=== PATIENT | female | born 1985 | race Caucasian/White ===

== ENCOUNTER 2016-12-30 11:51 | Emergency (ER) | payer BC ==
[~2016-12-30] VITALS: Wt 72.1 kg
[~2016-12-30 11:51] MED LIST: ACET1TAB40 PO; BIRTH CONTROL; CLIN-73 PO; IBUP800T25 PO; NAPR-260 PO
[2016-12-30] MEDS ORDERED: ONDANSETRON (ODT) 4 MG TAB ODT STA (12:35)
[2016-12-30] MEDS ORDERED: ONDANSETRON 4 MG INJ IV STA (12:40)
[2016-12-30 12:51] LABS: ADD SCAN DIFF NO
[2016-12-30 12:53] LABS: BASOPHILS % 0.4 % (0.0-2.0); EOSINOPHILS # 0.1 10^3/ul (0.0-0.5); EOSINOPHILS % 1.1 % (0.0-7.0); HEMATOCRIT 38.7 % (37.0-47.0); HEMOGLOBIN 12.9 g/dl (12.0-16.0); LYMPHOCYTES # 2.3 10^3/ul (0.8-2.9); LYMPHOCYTES % 24.7 % (15.0-51.0); MEAN CORPUSCULAR HEMOGLOBIN 28.9 pg (29.0-33.0); MEAN CORPUSCULAR HGB CONC 33.3 g/dl (32.0-37.0); MEAN CORPUSCULAR VOLUME 86.6 fl (82.0-101.0); MEAN PLATELET VOLUME 10.7 fl (7.4-10.4); MONOCYTE # 0.9 10^3/ul (0.3-0.9); MONOCYTES % 9.7 % (0.0-11.0); NEUTROPHIL # 5.9 10^3/ul (1.6-7.5); NEUTROPHILS % 63.5 % (39.0-77.0); PLATELET COUNT 279 10^3/UL (140-415); RED BLOOD COUNT 4.47 10^6/ul (4.20-5.40); RED CELL DISTRIBUTION WIDTH 13.5 % (11.5-14.5); WHITE BLOOD COUNT 9.3 10^3/ul (4.8-10.8)
[2016-12-30] MEDS ORDERED: morphine 10 MG INJ IM ONE (13:00)
[2016-12-30] MEDS ORDERED: morphine 10 MG INJ IV ONE (13:00)
--- NOTE | 2016-12-30 13:27 | RADRPT ---
PROCEDURE: XR right ankle. CLINICAL INDICATION: Ankle pain TECHNIQUE: Three views are available for review. COMPARISON: None available FINDINGS: There is diffuse soft tissue swelling at the ankle. There is normal mineralization, architecture and alignment. No fracture or osseous lesion is identif ied. The joints are unremarkable. IMPRESSION: Diffuse soft tissue swelling. No fracture or osseous lesion identified RPTAT: DB .Raul Hennessy MD, MD Date Time Electronically viewed and signed by .Raul Hennessy MD, MD on 12/30/2016 13:27 .B/
--- NOTE | 2016-12-30 13:28 | RADRPT ---
PROCEDURE: XR right tibia/fibula. CLINICAL INDICATION: Leg pain TECHNIQUE: AP and lateral views of the upper tibia / fibula available for review. COMPARISON: None available FINDINGS: The osseous structures are normal in mineralization, architecture and alignment. No fractures are i dentified. No osseous lesions are identified. The joints are unremarkable. The soft tissues are u nremarkable. IMPRESSION: Unremarkable examination RPTAT: HGDB .Raul Hennessy MD, MD Date Time Electronically viewed and signed by .Raul Hennessy MD, MD on 12/30/2016 13:27 .B/
[2016-12-30 13:35] LABS: POTASSIUM 4.7 mmol/L (3.5-5.1)
[2016-12-30 13:37] LABS: BILIRUBIN,INDIRECT 0.5 mg/dl (0-1.1); BILIRUBIN,TOTAL 0.5 mg/dl (0.2-1.3); CREATININE 0.69 mg/dl (0.44-1.00)
[2016-12-30 13:38] LABS: ALBUMIN/GLOBULIN RATIO 1.25; CALCIUM 9.2 mg/dl (8.4-10.2); TOTAL PROTEIN 7.2 g/dl (6.1-8.1)
[2016-12-30] MEDS ORDERED: HYDROmorphONE 1 MG/ML SYG IV STA (13:45)
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
[2016-12-30] MEDS ORDERED: IBUP-1542 PO (16:16)
[2016-12-30] MEDS ORDERED: OXYC-279 PO (16:16)
--- NOTE | 2016-12-30 17:10 | RADRPT ---
PROCEDURE: XR Foot. CLINICAL INDICATION: Pain. TECHNIQUE: Three views of the right foot. COMPARISON: None available. FINDINGS: No fracture or dislocation is identified. The joint spaces are preserved. There is soft tissue swe lling along the forefoot. IMPRESSION: 1. No fracture or dislocation of the right foot. RPTAT: HTAR .Dev Lara MD, MD Date Time Electronically viewed and signed by .Dev Lara MD, on 12/30/2016 17:10 .R/
--- NOTE | 2016-12-30 17:19 | EN ---
Date/Time of Note Date/Time of Note DATE: 12/30/16 TIME: 17:18 ER Progress Note Patient requested a foot x-ray, foot x-ray was done was evidence of fracture or dislocation. Patient was given Percocet and ibuprofen for her pain. Patient is to follow-up with her primary care doctor within 1-2 days and see an orthopedic doctor. I shared my medical decision making with patient she understands and agrees with plan. LAMINE COOK Dec 30, 2016 17:19
[2016-12-30 17:29] VITALS: BP 118/59; PULSE 76; RESP 18; TEMP 98.1
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
== END 2016-12-30 17:38 | disposition home or self-care (01) ==
LOC: FTE 11:51
DX: S87.81XA Crushing injury of right lower leg, initial encounter (principal); S80.11XA Contusion of right lower leg, initial encounter; V89.2XXA Person injured in unspecified motor-vehicle accident, traffic, initial encounter
CPT/HCPCS: 73590; 73610; 73630; 80053; 82550; 82553; 83605; 84484; 85025; 85651; 86140; 93926; 93971; 96374; 96375; 99285; J1170; J2270; J2405

== ENCOUNTER 2017-06-26 05:59 | Emergency (ER) | payer BC ==
[~2017-06-26] VITALS: Ht 157.5 cm; Wt 78.0 kg
[~2017-06-26 05:59] MED LIST changes: +IBUP-1542 PO; +OXYC-279 PO
[2017-06-26 06:02] VITALS: Ht 157.5 cm; Wt 78.0 kg
[2017-06-26] MEDS ORDERED: SOD CHLORIDE 0.9% 1,000 ML IV STA (06:27)
[2017-06-26] MEDS ORDERED: ONDANSETRON 4 MG INJ IV STA ×2 (06:27→07:52)
[2017-06-26] MEDS ORDERED: LORAZEPAM 2 MG INJ IV ONE (06:30)
[2017-06-26] MEDS ORDERED: ASPIRIN 325 MG TAB PO ONE (06:30)
--- NOTE | 2017-06-26 07:17 | RADRPT ---
PROCEDURE: XR Chest. CLINICAL INDICATION: Chest pain TECHNIQUE: A single AP view of the chest was obtained. COMPARISON: Chest x-ray dated 01/02/2014 FINDINGS: No focal airspace opacification, pleural effusion or pneumothorax is seen. The cardiomediastinal si lhouette is within normal limits for size. The osseous structures are unremarkable. IMPRESSION: Unremarkable chest x-ray. RPTAT: HH .Ember Dodd MD, MD Date Time Electronically viewed and signed by .Ember Dodd MD, on 06/26/2017 07:17 .G/
[2017-06-26 07:27] LABS: BASOPHIL # 0.1 10^3/ul (0.0-0.1); BASOPHILS % 0.3 % (0.0-2.0); EOSINOPHILS # 0.1 10^3/ul (0.0-0.5); EOSINOPHILS % 0.6 % (0.0-7.0); HEMATOCRIT 42.3 % (37.0-47.0); HEMOGLOBIN 14.1 g/dl (12.0-16.0); LYMPHOCYTES # 2.5 10^3/ul (0.8-2.9); LYMPHOCYTES % 16.2 % (15.0-51.0); MEAN CORPUSCULAR HEMOGLOBIN 27.9 pg (29.0-33.0); MEAN CORPUSCULAR HGB CONC 33.3 g/dl (32.0-37.0); MEAN CORPUSCULAR VOLUME 83.8 fl (82.0-101.0); MEAN PLATELET VOLUME 11.5 fl (7.4-10.4); MONOCYTE # 0.8 10^3/ul (0.3-0.9); MONOCYTES % 5.4 % (0.0-11.0); NEUTROPHILS % 76.9 % (39.0-77.0); PLATELET COUNT 264 10^3/UL (140-415); RED BLOOD COUNT 5.05 10^6/ul (4.20-5.40); RED CELL DISTRIBUTION WIDTH 13.6 % (11.5-14.5); WHITE BLOOD COUNT 15.7 10^3/ul (4.8-10.8)
[2017-06-26 07:46] LABS: ALANINE AMINOTRANSFERASE 55 IU/L (13-69); ALBUMIN 4.4 g/dl (3.3-4.9); ALBUMIN/GLOBULIN RATIO 1.18; ALKALINE PHOSPHATASE 93 IU/L (42-121); ANION GAP 17 (8-16); ASPARTATE AMINO TRANSFERASE 78 IU/L (15-46); BILIRUBIN,INDIRECT 0.2 mg/dl (0-1.1); BILIRUBIN,TOTAL 0.2 mg/dl (0.2-1.3); BLOOD UREA NITROGEN 14 mg/dl (7-20); CALCIUM 9.5 mg/dl (8.4-10.2); CARBON DIOXIDE 24 mmol/L (21-31); CHLORIDE 104 mmol/L (97-110); CREATININE 0.72 mg/dl (0.44-1.00); GLUCOSE 108 mg/dl (70-220); POTASSIUM 4.1 mmol/L (3.5-5.1); SODIUM 141 mmol/L (135-144); TOTAL PROTEIN 8.1 g/dl (6.1-8.1)
[2017-06-26] MEDS ORDERED: FAMOTIDINE 20 MG INJ IV STA (07:52)
[2017-06-26] MEDS ORDERED: FAMO-96 PO (07:54)
[2017-06-26] MEDS ORDERED: OMEP20CA16 PO (07:54)
[2017-06-26] MEDS ORDERED: ACET325T33 PO (07:55)
[2017-06-26] MEDS ORDERED: LIDOCAINE/MYLANTA 40 ML BTL PO STA (07:58)
[2017-06-26 08:10] LABS: TROPONIN-I < 0.012 ng/ml (0.00-0.12)
--- NOTE | 2017-06-26 08:23 | ERD ---
ER Documentation Chief Complaint Date/Time DATE: 06/26/17 TIME: 08:22 Chief Complaint PT reports SOB x 1 hour sub sternal CP HPI This is a 32-year-old female presents to the emergency department complaining of midsternal chest pain that is nonradiating, rated 10 out of 10 with associated shortness of breath for the past hour. Patient admits to having nausea. Denies any vomiting, diaphoresis, drug abuse, diarrhea,, fevers. Patient has not taken any medications for this. ROS All systems reviewed and are negative except as per history of present illness. Medications Home Meds Active Scripts Acetaminophen* (Tylenol*) 325 Mg Tablet, 2 TAB PO Q4 Y for PAIN AND OR ELEVATED TEMP, #30 TAB Prov:JACQUI OSEGUERA PA-C 06/26/17 Omeprazole* (Omeprazole*) 20 Mg Capsule.dr, 20 MG PO QAM, #15 Prov:JACQUI OSEGUERA PA-C 06/26/17 Famotidine* (Pepcid*) 20 Mg Tablet, 20 MG PO QHS for 5 Days, TAB Prov:JACQUI OSEGUERA PA-C 06/26/17 Ibuprofen* (Motrin*) 600 Mg Tab, 600 MG PO Q6, #30 TAB Prov:LAMINE COOK 12/30/16 Oxycodone HCl/Acetaminophen (Percocet 5-325 mg Tablet) 1 Each Tablet, 1 EACH PO Q6, #20 TAB Prov:LAMINE COOK 12/30/16 Naproxen* (Naprosyn*) 500 Mg Tablet, 500 MG PO BID Y for PAIN AND/OR INFLAMMATION, #30 TAB Prov:TANI DHILLON PA-C 06/30/15 Acetaminophen-Codeine* (Acetaminophen-Cod #3*) 300-30 Mg Tab, 1 TAB PO Q4H Y for PAIN LEVEL 6-10, #15 TAB Prov:CHO,MARISELA 05/01/15 Ibuprofen* (Motrin*) 800 Mg Tab, 800 MG PO Q8 for PAIN LEVEL 1-5, #15 TAB Prov:CHO,MARISELA 05/01/15 Clindamycin Hcl* (Clindamycin Hcl*) 300 Mg Capsule, 300 MG PO Q6 for 7 Days, CAP Prov:CHO,MARISELA 05/01/15 Reported Medications [ Control] No Conflict Check 11/15/10 Allergies Allergies: Coded Allergies: Penicillins (Verified Allergy, Mild, RASH, 03/18/14) codeine (Verified Allergy, Unknown, 06/30/15) PMhx/Soc History of Surgery: No Anesthesia Reaction: No Hx Neurological Disorder: No Hx Respiratory Disorders: No Hx Cardiac Disorders: No Hx Psychiatric Problems: No Hx Miscellaneous Medical Probl: No Hx Alcohol Use: No Hx Substance Use: No Hx Tobacco Use: No Smoking Status: Never smoker Physical Exam Vitals Vital Signs Date Time Temp Pulse Resp B/P Pulse Ox O2 Delivery O2 Flow Rate FiO2 06/26/17 06:02 98.9 85 18 151/94 100 Physical Exam Const: Well-developed well-nourished Head: Atraumatic Eyes: Normal Conjunctiva ENT: Normal External Ears, Nose and Mouth. Neck: Full range of motion..~ No meningismus. Resp: Clear to auscultation bilaterally, Patient is breathing heavily Cardio: Regular rate and rhythm, no murmurs Abd: Soft, non tender, non distended. Normal bowel sounds Skin: No petechiae or rashes Back: No midline or flank tenderness Ext: No cyanosis, or edema Neur: Awake and alert Psych: Normal Mood and Affect Result Diagram: 06/26/17 0640 06/26/17 0640 Results 24 hrs Laboratory Tests Test 06/26/17 06:40 White Blood Count 15.710^3/ul Red Blood Count 5.0510^6/ul Hemoglobin 14.1g/dl Hematocrit 42.3% Mean Corpuscular Volume 83.8fl Mean Corpuscular Hemoglobin 27.9pg Mean Corpuscular Hemoglobin Concent 33.3g/dl Red Cell Distribution Width 13.6% Platelet Count 23978^3/UL Mean Platelet Volume 11.5fl Neutrophils % 76.9% Lymphocytes % 16.2% Monocytes % 5.4% Eosinophils % 0.6% Basophils % 0.3% Nucleated Red Blood Cells % 0.0/100WBC Neutrophils # 12.010^3/ul Lymphocytes # 2.510^3/ul Monocytes # 0.810^3/ul Eosinophils # 0.110^3/ul Basophils # 0.110^3/ul Nucleated Red Blood Cells # 0.010^3/ul Sodium Level 141mmol/L Potassium Level 4.1mmol/L Chloride Level 104mmol/L Carbon Dioxide Level 24mmol/L Anion Gap 17 Blood Urea Nitrogen 14mg/dl Creatinine 0.72mg/dl Glucose Level 108mg/dl Calcium Level 9.5mg/dl Total Bilirubin 0.2mg/dl Direct Bilirubin 0.00mg/dl Indirect Bilirubin 0.2mg/dl Aspartate Amino Transf (AST/SGOT) 78IU/L Alanine Aminotransferase (ALT/SGPT) 55IU/L Alkaline Phosphatase 93IU/L Troponin I < 0.012ng/ml Total Protein 8.1g/dl Albumin 4.4g/dl Globulin 3.70g/dl Albumin/Globulin Ratio 1.18 Lipase 58U/L Current Medications Medications (Trade) Dose Ordered Sig/Iftikhar Route PRN Reason Start Time Stop Time Status Last Admin Dose Admin Sodium Chloride (NS) 1,000 ml @ 1,000 mls/hr Q1H STAT IV 06/26/17 06:27 06/26/17 07:26 DC 06/26/17 06:38 Ondansetron HCl (Zofran Inj) 4 mg ONCE STAT IV 06/26/17 06:27 06/26/17 06:29 DC 06/26/17 06:39 Aspirin (Aspirin) 325 mg ONCE ONCE PO 06/26/17 06:30 06/26/17 06:31 DC 06/26/17 06:39 Lorazepam (Ativan) 1 mg ONCE ONCE IV 06/26/17 06:30 06/26/17 06:31 DC 06/26/17 06:39 Ondansetron HCl (Zofran Inj) 4 mg ONCE STAT IV 06/26/17 07:52 06/26/17 07:53 DC 06/26/17 08:05 Famotidine (Pepcid Iv) 20 mg ONCE STAT IV 06/26/17 07:52 06/26/17 07:53 DC 06/26/17 08:06 Miscellaneous Medication (Gi Cocktail (2)) 40 ml ONCE STAT PO 06/26/17 07:58 06/26/17 07:59 DC 06/26/17 08:05 Acetaminophen (Tylenol Tab) 650 mg ONCE STAT PO 06/26/17 08:25 06/26/17 08:26 DC 06/26/17 08:54 Procedures/MDM 32-year-old female presents with emergency department with midsternal chest pain , epigastric abdominal pain, shortness of breath and nausea. Patient likely has biliary colic due to cholelithiasis versus gastritis, anxiety. No evidence of ACS, pulmonary embolism. Patient is stable to be discharged home to follow-up with primary care physician. Discussed return to the ER for worsening symptoms patient understands and agrees with this plan ER course IV access established,Patient was given Pepcid, Ativan, GI cocktail. I have reassessed her and she significant feels a lot better. patient had mild leukocytosis. No evidence of urinary tract infection. No evidence of pancreatitis. Gallbladder ultrasound showed evidence of colitis without cholecystitis. Chest x-ray did not show any evidence of infiltrates, pneumothorax or pleural effusion EKG did not show any evidence of STEMI. EKG: read and signed off by myself and Zohrabian Rate/Rhythm: Normal Sinus Rhythm at 75bpm QRS, ST, T-waves: No changes consistent w/ acute ischemia Impression: No evidence of ischemia or arrhythmia Departure Diagnosis: Primary Impression: Chest pain Additional Impression: Shortness of breath Condition: Stable Patient Instructions: Treating Gastritis, Understanding Gastritis, Chest Pain, Uncertain Cause Referrals: SUNDAR BILLINGS MD (PCP) Additional Instructions: FOLLOW UP WITH YOUR PRIMARY CARE PHYSICIAN TOMORROW.Return to this facility if you are not improving as expected. Take all medicines as directed. Return to this facility if you are not improving as expected. JACQUI OSEGUERA PA-C Jun 26, 2017 08:23
[2017-06-26] MEDS ORDERED: ACETAMINOPHEN 325 MG TAB PO STA (08:25)
--- NOTE | 2017-06-26 09:04 | RADRPT ---
PROCEDURE: Right upper quadrant abdominal ultrasound. CLINICAL INDICATION: Abdominal pain TECHNIQUE: Reyes scale and color doppler ultrasound images of the right upper quadrant of the abdom en. COMPARISON: CT abdomen pelvis 03/18/2014 FINDINGS: Pancreas: Visualized portions appear of normal echogenicity without focal lesions. Liver: Morphology: The right lobe of the liver is elongated measuring up to 18.5 cm which may reflect Ried el's lobe configuration. Contour:Normal, no evidence of nodularity. Echogenicity: Increased Focal lesions:None. Main portal vein: Patent with hepatopetal flow. Biliary System: Gallbladder wall: Normal thickness. Gallstones: Numerous are present Intrahepatic bile ducts: Normal caliber. Common bile duct diameter (mm): 5.3 Kidneys: Right length (cm) : 12.3 Right cortical thickness: Normal. Echogenicity: Normal. Hydronephrosis: None. Renal calculi: None. Focal lesions: None. Free fluid/ascites: None. Abdominal aorta: Not visualized by the janitor custodian. Other findings: None. IMPRESSION: Cholelithiasis without evidence of abnormal gallbladder wall thickening to suggest cholecystitis. Normal caliber of the intrahepatic and extrahepatic biliary system. Increased echogenicity of the liver parenchyma suggestive of hepatic steatosis. RPTAT: AADD .Devante Pagan MD, MD Date Time Electronically viewed and signed by .Devante Pagan MD, on 06/26/2017 09:03 .B/
[2017-06-26 10:59] VITALS: BP 148/79; PULSE 88; RESP 18
[2017-06-26] MEDS ORDERED: METOCLOPRAMIDE 10 MG INJ IV ONE (11:00)
== END 2017-06-26 11:45 | disposition home or self-care (01) ==
LOC: FTE 05:59
DX: R07.2 Precordial pain (principal)
CPT/HCPCS: 71010; 76705; 80053; 83690; 84484; 85025; 93005; 96374; 96375; 96376; 99285; J2060; J2405; J7030; Z7610

== ENCOUNTER 2018-02-27 18:19 | Emergency (ER) | END 2018-02-27 23:14 | disposition home or self-care (01) ==